=== PATIENT | male | born 1995 | race Caucasian/White ===

== ENCOUNTER 2019-10-07 16:56 | Emergency (ER) | payer BC ==
[2019-10-07 19:33] VITALS: BP 130/70
--- NOTE | 2019-10-07 19:37 | UC ---
Complaint Male HPI - HPI Summary HPI Summary: INTERMITTENT BILATERAL TESTICULAR PAIN FOR THE PAST 3-4 DAYS. 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 DENIES URINARY SYMPTOMS. IS SEXUALLY ACTIVE WITH ONE FEMALE PARTNER FOR THE PAST 2 MONTHS. STATES HE IS NOT AT ALL CONCERNED ABOUT STDS. DENIES ANY DISCRETE TRAUMA TO THE AREA. NO SWELLING. - History of Current Complaint Chief Complaint: UCAbdominalPain Stated Complaint: ABD AND GROIN PAIN Time Seen by Provider: 10/07/19 18:31 Hx Obtained From: Patient Onset/Duration: Gradual Onset, Lasting Days, Still Present Timing: Constant - BUT WORSE AFTER RUNNING Severity Initially: Moderate Severity Currently: Moderate Pain Intensity: 3 Pain Scale Used: 0-10 Numeric Location: Testicle Character: Sharp Aggravating Factor(s): Other - RUNNING Alleviating Factor(s): Nothing Associated Signs And Symptoms: Positive: Negative - Allergies/Home Medications Allergies/Adverse Reactions: Allergies Allergy/AdvReac Type Severity Reaction Status Date / Time No Known Allergies Allergy Verified 10/07/19 17:13 Home Medications: Home Medications NK [No Home Medications Reported] 10/07/19 [History Confirmed 10/07/19] PMH/Surg Hx/FS Hx/Imm Hx Previously Healthy: Yes - Surgical History Surgical History: None - Family History Known Family History: Positive: Non-Contributory - Social History Alcohol Use: Occasionally Substance Use Type: None Smoking Status (MU): Never Smoked Tobacco Review of Systems All Other Systems Reviewed And Are Negative: Yes Constitutional: Positive: Negative Skin: Positive: Negative Respiratory: Positive: Negative Cardiovascular: Positive: Negative Gastrointestinal: Positive: Negative Genitourinary: Positive: Other - TESTICULAR PAIN Physical Exam Triage Information Reviewed: Yes Appearance: Well-Appearing, No Pain Distress, Well-Nourished Vital Signs: Initial Vital Signs Temp 98.2 F 10/07/19 17:09 Pulse 66 10/07/19 17:09 Resp 12 10/07/19 17:09 BP 130/84 10/07/19 17:09 Pulse Ox 100 10/07/19 17:09 Laboratory Tests 10/07/19 18:40 POC Urine Color Yellow POC Urine Clarity Clear POC Urine pH 5.0 POC Ur Specif [place] 1.020 POC Urine Protein Negative POC Ur Glucose (UA) Negative POC Urine Ketones 1+ A POC Urine Blood Negative POC Urine Nitrite Negative POC Urine Bilirubin Negative POC Urine Urobilinogen 0.2 POC U Leukocyte Esteras Negative Vital Signs Reviewed: Yes Eyes: Positive: Conjunctiva Clear ENT: Positive: Hearing grossly normal Neck: Positive: Supple Respiratory: Positive: No respiratory distress, No accessory muscle use Cardiovascular: Positive: Pulses Normal Abdomen Description: Positive: Nontender, Soft. Negative: CVA Tenderness (R), CVA Tenderness (L), Distended, Guarding Bowel Sounds: Positive: Present Male Genital Exam: Positive: Normal Genitalia, No Hernia. Negative: Epididymal Tenderness, Erythema, Inguinal Tenderness, Scrotum Tenderness (R), Scrotum Tenderness (L), Testicular Tenderness (R), Testicular Tenderness (L), Urethral Discharge Musculoskeletal: Positive: No Edema Neurological: Positive: Alert Psychological: Positive: Age Appropriate Behavior Skin: Negative: Rashes Complaint Male Course/Dx - Course Course Of Treatment: UNCLEAR ETIOLOGY OF TESTICULAR PAIN TODAY. URINE DIP UNREMARKABLE. SPECIMEN HAS BEEN SENT FOR TESTING FOR GONORRHEA AND CHLAMYDIA ALTHOUGH PATIENT IS NOT CONCERNED ABOUT THIS AT ALL. ON EXAM THERE IS NO EVIDENCE OF HERNIA OR TORSION. HIS PRESENTATION IS NOT CONSISTENT WITH EPIDIDYMITIS OR APPENDIX TESTIS. 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 HIS DISCOMFORT MAY BE DUE TO THE TRAUMA SUSTAINED DURING THESE ACTIVITIES. HE IS TO CALL [facility] Wednesday FOR A FOLLOW-UP APPOINTMENT. HE WOULD BENEFIT FROM AN ULTRASOUND. ADVISED TO GO DIRECTLY TO THE ER WITHOUT FAIL IF HIS SYMPTOMS WORSEN. - Differential Dx/Diagnosis Provider Diagnosis: Pain in both testicles Discharge ED - Sign-Out/Discharge Documenting (check all that apply): Patient Departure All imaging exams completed and their final reports reviewed: No Studies - Discharge Plan Condition: Stable Disposition: HOME Patient Education Materials: Testicle Pain (ED) Referrals: [facility] [Provider Group] - 2 Days [facility] @ [Outside] - If Needed Additional Instructions: CALL [facility] Wednesday TO SCHEDULE AN APPT FOR FURTHER EVALUATION. YOUR URINE HAS BEEN SENT FOR TESTING FOR GONORRHEA AND CHLAMYDIA. WE WILL CALL YOU WITH ANY ABNORMAL RESULTS. GO TO THE ER WITHOUT FAIL IF YOU HAVE WORSENING PAIN, FEVER, INABILITY TO URINATE OR ANY OTHER CONCERNING SYMPTOMS. - Billing Disposition and Condition Condition: STABLE Disposition: Home
[2019-10-09 14:35] LABS: Chlamydia trachomatis NAA Negative (Negative); Neisseria gonorrhoeae (GC) NAA Negative (Negative)
== END 2019-10-07 19:35 | disposition home or self-care (01) ==
LOC: UCEAST 16:56
DX: N50.811 Right testicular pain (principal); N50.812 Left testicular pain
CPT/HCPCS: 81003; 87491; 87591; 99211; G0463

== ENCOUNTER 2019-10-08 10:35 | Emergency (ER) | payer BC ==
--- NOTE | 2019-10-08 13:26 | ED ---
GI/ HPI - HPI Summary HPI Summary: The patient is a 23 y/o M presenting to [facility] with a chief complaint of intermittent bilateral testicular pain for the last 4 days. He reports that four days ago, he had been running track and felt pain in the pelvic area that seemed to persist throughout the day but subsided over the night. He woke up next day and felt pain in the testicles with worsening throughout the day. He went to practice the same day and had increased pain, so he stopped practicing. He was checked for a hernia by the physical trainer, and there were no signs for hernia. He went to practice the next day because he wasnt having any more pain, but then he had an event yesterday which caused more pain. Currently, the pain is rated 5/10 in severity. The pain is aggravated with compression shorts as well. He denies dysuria, penile discharge, or swelling. He states he went to [facility] yesterday with benign results for hernia,or any urinary infection. They recommended US. He is sexually active with one female partner for the past two months without concern for STDs; labs sent yesterday for gonorrhea and chlamydia at [facility]. No PMHx. Nonsmoker, occasional EtOH, no substance use. Medications reviewed. Allergies noted. - History of Current Complaint Chief Complaint: EDUrogenitalProblems Time Seen by Provider: 10/08/19 13:24 Stated Complaint: TESTICULAR PAIN PER PT Hx Obtained From: Patient Onset/Duration: Started Days Ago - four, Still Present Timing: Intermittent, Lasting Hours Current Severity: Moderate Pain Intensity: 5 Additional Locations for Males: Testicles - bilateral Pain Characteristics: Dull Associated Signs and Symptoms: Negative: Dysuria Additional Signs & Symptoms: Negative: Penile Swelling, Penile Discharge Aggravating Factor(s): Movement - running Alleviating Factor(s): Rest - Allergy/Home Medications Allergies/Adverse Reactions: Allergies Allergy/AdvReac Type Severity Reaction Status Date / Time No Known Allergies Allergy Verified 10/07/19 17:13 PMH/Surg Hx/FS Hx/Imm Hx Endocrine/Hematology History: Denies: Hx Diabetes Respiratory History: Denies: Hx Asthma Sensory History: Denies: Hx Legally Blind, Hx Deafness Opthamlomology History: Denies: Hx Legally Blind EENT History: Denies: Hx Deafness - Surgical History Surgical History: None Surgery Procedure, Year, and Place: none Infectious Disease History: No Infectious Disease History: Denies: Traveled Outside the [place] in Last 30 Days - Family History Known Family History: Negative: Hypertension, Diabetes - Social History Alcohol Use: Occasionally Hx Substance Use: No Substance Use Type: Reports: None Hx Tobacco Use: No Smoking Status (MU): Never Smoked Tobacco Review of Systems Positive: Abdominal Pain - pelvic Positive: other - bilateral testicular pain; Negative: swelling. Negative: dysuria, discharge All Other Systems Reviewed And Are Negative: Yes Physical Exam - Summary Physical Exam Summary: Constitutional: Well-developed, Well-nourished, Alert. (-) Distressed Skin: Warm, Dry HENT: Normocephalic; Atraumatic Eyes: Conjunctiva normal Neck: Musculoskeletal ROM normal neck. (-) JVD, (-) Stridor, (-) Nuchal rigidity Cardio: Rhythm regular, rate normal, Heart sounds normal; Intact distal pulses; Radial pulses are 2+ and symmetric. (-) Murmur Pulmonary/Chest wall: Effort normal. (-) Respiratory distress, (-) Wheezes, (-) Rales Abd: Soft, (-) tenderness, (-) Distension, (-) Guarding, (-) Rebound Musculoskeletal: (-) Edema Lymph: (-) Cervical adenopathy Neuro: Alert, Oriented x3 Psych: Mood and affect Normal : Bilateral distal inguinal canal tenderness radiating to perineum, no scrotal tenderness. 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 Triage Information Reviewed: Yes Vital Signs On Initial Exam: Initial Vitals Temp Pulse Resp BP Pulse Ox 98.0 F 74 16 154/82 98 10/08/19 10:41 10/08/19 10:41 10/08/19 10:41 10/08/19 10:41 10/08/19 10:41 Vital Signs Reviewed: Yes Procedures - Sedation Patient Received Moderate/Deep Sedation with Procedure: No Diagnostics - Vital Signs Vital Signs Temp Pulse Resp BP Pulse Ox 10/08/19 12:31 99.1 F 78 16 139/80 99 10/08/19 10:41 98.0 F 74 16 154/82 98 - Laboratory Lab Statement: Any lab studies that have been ordered have been reviewed, and results considered in the medical decision making process. - Ultrasound Testicular US Ultrasound Interpretation Completed By: Radiologist Summary of Ultrasound Findings: Impression: Normal ultrasound of the testes. ED physician has reviewed this report. GIGU Course/Dx - Course Course Of Treatment: 23 y/o male p/w inguinal pain. - PE w tenderness of inguinal canals radiating to perineum bilaterally, no testicular tenderness or swelling. - US negative, do not suspect torsion or epididymitis. Instructed patient to use scrotal support, Motrin/Tylenol follow up as needed with urology if he has persistent pain. - Diagnoses Provider Diagnoses: Pelvic pain Discharge ED - Sign-Out/Discharge Documenting (check all that apply): Patient Departure - Patient will be discharged home. - Discharge Plan Condition: Good Disposition: HOME Patient Education Materials: Pelvic Pain in Men (ED) Referrals: Evangelista Bear MD [Medical Doctor] - 3 Days [facility], [[place], APPLICATION, OTHER] - 3 Days Additional Instructions: You were seen in the emergency department for scrotal pain. Your ultrasound did not show any evidence of torsion or infection. You can wear supportive underwear such as a jock strap to help with pain. Please follow up with your primary care doctor in the next 2-3 days and return to the emergency department for worsening pain, fevers, or concerning symptoms. It was a pleasure taking care of you today - Billing Disposition and Condition Condition: GOOD Disposition: Home - Attestation Statements Document Initiated by Madalyn: Yes Documenting Scribe: Leilani Coffey Provider For Whom Madalyn is Documenting (Include Credential): Dr. Maria L Gilbert MD Scribe Attestation: I, Leilani Coffey, scribed for Dr. Maria L Gilbert MD on 10/08/19 at 1355. Scribe Documentation Reviewed: Yes Provider Attestation: The documentation as recorded by the Leilani cowan accurately reflects the service I personally performed and the decisions made by me, Dr. Maria L Gilbert MD Status of Scribsmith Document: Viewed
[2019-10-08 14:07] VITALS: BP 124/79
== END 2019-10-08 14:06 | disposition home or self-care (01) ==
LOC: ED 10:35
DX: R10.2 Pelvic and perineal pain (principal)
CPT/HCPCS: 76870; 99282